=== PATIENT | male | born 1965 | race Caucasian/White ===

== ENCOUNTER 2018-04-08 12:14 | Emergency (ER) | payer OTHER, SELFPAY ==
[2018-04-08] VITALS (48 sets, daily range): BP systolic 121–144; BP diastolic 63–81; PULSE 46–71; RESP 10–21; TEMP 35.9–37.1; O2SAT 95–100
--- NOTE | 2018-04-08 12:30 | ED.GENADUL_ITS ---
Discharge Plan Disposition Patient Disposition: [facility] ([facility]) Discharge Details Chief Complaint: Dizzy/Sync Clinical Impression: Dizziness, Syncope, Bradycardia Primary Care Provider: Ethel,Local ED Provider: Paco Jones Home Meds and New Rx's Prescriptions: No Action lisinopril 5 mg Tablet 5 mg PO DAILY RF: 0 naproxen 500 mg Tablet 500 mg PO BID RF: 0 Discharge Data Discharge Date/Time-TO BE ENTERED AT DEPARTURE: 04/08/18 16:39 Medical Decision Making 12:30 -- ECG was reviewed and interpreted by me: Marked sinus bradycardia 44 bpm, normal axis, nondiagnostic. 12:55 --52-year-old male here with dizziness, recent syncope, bradycardic. Rt posterior DENNY. Neuro intact. No deficits consistent with posterior circulation stroke/mass. No nystagmus. Concern for cardiogenic etiology versus possible neurologic. Patient does have posterior right headache. Consider posterior circulation CVA. Plan to obtain stat CT imaging of the head. 13:59 --patient reassessed and continues to have headache and dizziness. CT head interpreted by radiology: Negative CT head exam. No evidence of intra-cranial hemorrhage or territorial infarct. No evidence of white matter disease, mass or edema. No MRI capability at [facility] this weekend. No neurology or cardiolgoy service availability. Spoke with [facility] transfer center to request neuro consult. 15:05 -- Spoke with Dr. Mazariegos at [facility]: concern for potential symptomatic bradycardia vs less likely posterior circulation lesion. Unable to accept patie nt in transfer given volume and census. 15:29 -- Spoke with cardiology at [facility]. Recommends further differentiation at [facility] ED. 15:37 -- Spoke with Dr. Walton at [facility] who will accept transfer to ED. Plan for MRI brain. If neg and bradycardia persists, will need additional workup and likely cardiology evaluation. HPI General Mode of arrival: ambulatory . Date/Time Provider Initiated Documentation: 04/08/18 12:28 . Limitations to Documentation: no limitations . Information obtained by: patient . HPI Narrative: 52-year-old male history of hypertension presents with chief complaint of dizziness. Patient notes around 830 this morning he was sitting at a table and suddenly felt dizzy. He lost consciousness. He came to with people assisting him to the bedroom. He laid down for a bit and was noted to be diaphoretic. He is continued to feel dizzy. Dizziness is severe. Worse with standing. He has associated posterior right headache. Headache is mild. He has no associated numbness or focal weakness. No visual changes. No ear pain or fullness. No chest pain or SOB. Related Data Home Medications Medication Instructions Recorded Confirmed lisinopril 5 mg PO DAILY 04/08/18 04/08/18 naproxen 500 mg PO BID 04/08/18 04/08/18 Allergies Allergy/AdvReac Type Severity Reaction Status Date / Time No Known Allergies Allergy Unverified 04/08/18 13:24 Review of Systems Review of Systems All systems reviewed & are unremarkable except as noted in HPI and below PFSH Medical History HTN (hypertension) (Chronic) Social History Smoking and Tabacco status: Never Exam Const General: cooperative and no acute distress Orientation: alert and awake HENMT Head: normocephalic and atraumatic Mouth: moist mucous membranes Eyes Conjunctivae: normal conjunctivae Sclera: normal sclerae EOM: EOM intact bilaterally Neck Neck: trachea midline and supple Resp Auscultation: clear to auscultation bilaterally, no rales, no rhonchi and no wheezes Cardio Jugular venous pressure: no JVD Rate: bradycardic Rhythm: regular rhythm GI Palpation: soft, not firm, no guarding, no masses, not rigid and nontender Skin General skin exam: no rashes or lesions noted Neuro General: alert, awake, oriented x3 and tone normal Cranial Nerves: CN's II-XI intact bilaterally Cognition: normal cognition Speech: speech normal Motor: muscle tone normal throughout and strength 5/5 throughout Sensory Exam: no sensory deficits noted Other: Finger to nose intact bilaterally, rapid alternating movements intact but slow, able to run heel shins bilaterally Extrem General: no edema Psych Appearance: grossly normal Mental Status: mental status grossly normal Speech and Movement: speech and movement normal
[2018-04-08] MEDS: Normal Saline Flush 10 ML SYR IVP (12:40)
[2018-04-08 12:49] LABS: Abs Immature Grans 0.02 k/cumm (0.0-0.09); Absolute Basophil Count 0.01 k/cumm (0.0-0.2); Absolute Eosinophil Count 0.01 k/cumm (0.0-0.7); Absolute Neutrophil Count 8.33 k/cumm (1.2-6.7); Basophils % 0.1; Eosinophils % 0.1; HCT 37.5 % (40.0-50.0); HGB 13.3 g/dL (13.5-17.5); Immature Grans % 0.2; Lymphocytes % 10.8; Mean Corp. HGB Concentration 35.5 g/dL (32.0-36.0); Mean Corpuscular Hemoglobin 31.5 pg (27.0-33.0); Mean Corpuscular Volume 88.9 fL (80-95); Mean Platelet Volume 9.7 fL (8.0-11.0); Monocytes % 6.9; Neutrophils % 81.9; Platelet Count 168 x1000/uL (130-400); RBC 4.22 m/cumm (4.50-6.00); White Blood Cell Count 10.17 k/cumm (4.4-10.8)
--- NOTE | 2018-04-08 12:54 | DI.CT_ITS ---
SYMPTOM/DIAGNOSIS: POSTERIOR RIGHT HEADACHE, DIZZY NONCONTRAST HEAD CT: No intracranial hemorrhage or skull fracture is seen. The ventricles are normal in size. There is mild sinus mucosal thickening. The mastoid air cells appear clear. IMPRESSION: No acute abnormality.
[2018-04-08 13:11] LABS: ALT 23 U/L (12-78); AST 25 U/L (15-37); Albumin 3.8 g/dL (3.4-5.0); Alkaline Phosphatase 84 U/L (46-116); Anion Gap 8.3 mmol/L (3-11); BUN 14 mg/dL (7-18); Bilirubin, Total 0.6 mg/dL (0.2-1.0); CO2 30.7 mmol/L (21.0-32.0); CREATININE 1.02 mg/dL (0.70-1.30); Calcium 8.8 mg/dL (8.5-10.1); Chloride 103 mmol/L (98-107); Glucose 138 mg/dL (70-100); Magnesium 1.9 mg/dL (1.8-2.4); Potassium 4.4 mmol/L (3.5-5.1); Sodium 142 mmol/L (136-145); Total Protein 7.5 g/dL (6.4-8.2); Troponin I < 0.02 ng/mL (0.00-0.06)
[2018-04-08] MEDS: Lactated Ringers 500 ML IV (13:15)
--- NOTE | 2018-04-08 13:23 | DI.VRAD_ITS ---
EXAM: CT Head Without Contrast EXAM DATE/TIME: 04/08/2018 12:56 PM CLINICAL HISTORY: 52 years old, male; Signs and symptoms; Other: Temporal DENNY, HTN TECHNIQUE: Axial computed tomography images of the head/brain without contrast. All CT scans at this facility use at least one of these dose optimization techniques: automated exposure control; mA and/or kV adjustment per patient size (includes targeted exams where dose is matched to clinical indication); or iterative reconstruction. Coronal and sagittal reformatted images were created and reviewed. STROKE PROTOCOL was implemented. COMPARISON: No relevant prior studies available. FINDINGS: Brain: Unremarkable. No hemorrhage. No evidence white matter disease, mass or edema. No midline shift. Ventricles: Unremarkable. No hydrocephalus. Bones/joints: Unremarkable. No fracture. Sinuses: Mild mucosal thickening in the left ethmoid and maxillary sinuses. No air-fluid levels. Mastoid air cells: Unremarkable as visualized. No mastoid effusion. Soft tissues: Unremarkable. IMPRESSION: 1. Negative CT head exam. No evidence of intracranial hemorrhage or territorial infarction. 2. [place] Stroke Program Early CT Score (ASPECTS) = 10, normal score. Dictated and Authenticated by: Shelia Kohler MD. Ordering:RAVEN Antonio MD
[2018-04-08 16:06] LABS: Troponin I < 0.02 ng/mL (0.00-0.06)
[2018-04-08] MEDS: Lactated Ringers 1,000 ML 125 ML IV (16:30)
== END 2018-04-08 16:39 | disposition short-term general hospital (02) ==
PROVIDERS: Emergency Provider Student in an Organized Health Care Education/Training Program
DX: R55 Syncope and collapse (principal); R42 Dizziness and giddiness; R00.1 Bradycardia, unspecified
CPT/HCPCS: 36415; 80053; 93005; 96360; 99285; 70450; 83735; 84443; 84484; 85025; 93010